=== PATIENT | female | born 1960 | race Caucasian/White ===

== ENCOUNTER → 2018-03-09 | Outpatient (CLI) | payer OTHER ==
[~2018-03-09] MED LIST: LEV88 PO; METH4TAB57 PO; [UNRECOGNIZED DRUG - CODE] PO
--- NOTE | 2018-03-09 09:12 | RADIOLOGY IMAGING REPORT ---
FACILITY: PATIENT NAME: Jael Worthy : 1960 MR: [id number] V: [id number] EXAM DATE: ORDERING PHYSICIAN: MARCIA BENITEZ TECHNOLOGIST: Location: [facility] Patient: Jael Worthy : 1960 Visit/Account:[id number] Date of Sevice: 03/09/2018 PELVIC HISTORY: Left pelvic pain, status post hysterectomy, right ovary removed TECHNIQUE: Transabdominal and transvaginal ultrasound pelvis. COMPARISON: CT abdomen pelvis June 26, 2017 FINDINGS: Uterus: Hysterectomy Small anechoic nodules are identified within the vagina which possibly represent Adriana duct cysts Ovaries: Right - surgically absent Left - not visualized Adnexa: Grossly unremarkable. Free pelvic fluid: None. IMPRESSION: Postsurgical changes from hysterectomy and right nephrectomy. The left ovary is not seen Several small anechoic nodules are identified in the vagina which may represent Adriana duct cysts Report Dictated By: Mari Jose MD at 03/09/2018 8:54 AM Report E-Signed By: Mari Jose MD at 03/09/2018 9:07 AM WSN:[email or web address]
== END ==
LOC: RAD 07:53
PROVIDERS: ATTEND Obstetrics & Gynecology
DX: N89.8 Other specified noninflammatory disorders of vagina (principal); Z90.710 Acquired absence of both cervix and uterus; Z90.721 Acquired absence of ovaries, unilateral; Z90.5 Acquired absence of kidney
CPT/HCPCS: 76856

== ENCOUNTER → 2018-03-18 | Outpatient (CLI) | payer OTHER ==
--- NOTE | 2018-03-18 16:41 | RADIOLOGY IMAGING REPORT ---
FACILITY: [facility] PATIENT NAME: JAMARCUS NIXON : [id number] MR: [id number] V: [id number] EXAM DATE: [id number] ORDERING PHYSICIAN: MARCIA BENITEZ TECHNOLOGIST: Suma Basurto PROCEDURE:BILATERAL DIGITAL SCREENING MAMMOGRAM WITH CAD ASSISTED INTERPRETATION & 3D TOMOSYNTHESIS COMPARISON:Prior mammograms 10/07/16, 05/07/13. INDICATIONS:SCREENING FINDINGS: A small to moderate amount of fibroglandular tissue is seen throughout the breasts. The parenchymal pattern has remained stable allowing for difference in mammographic technique & patient positioning. There is no evidence of malignant appearing mass, malignant appearing calcifications or other secondary sign of malignancy in either breast. DIAGNOSTIC CATEGORY 1--NEGATIVE. RECOMMENDATIONS: ROUTINE MAMMOGRAM AND CLINICAL EVALUATION. IMPRESSION: BIRADS 1: Negative. No significant abnormality is seen. Dictated by: Mari Jose M.D. on 03/18/2018 at 11:05 Transcribed by: DIANA on 03/18/2018 at 11:14 Approved by: Mari Jose M.D. on 03/18/2018 at 16:40 [facility]
== END ==
LOC: MAMO 01:16
PROVIDERS: ATTEND Obstetrics & Gynecology
DX: Z12.31 Encounter for screening mammogram for malignant neoplasm of breast (principal)
CPT/HCPCS: 77063; 77067